=== PATIENT | female | born 1975 | race Caucasian/White ===

== ENCOUNTER → 2017-08-04 | Outpatient (CLI) | payer BC ==
[2017-08-04 16:00] LABS: BASO % 0.2 %; BASO ABS # 0.03 K/uL (0-0.2); COMPLETE YES; EOS % 1.1 %; HEMATOCRIT 37.7 % (37-47); IG% 0.2 %; LYMPH % 19.4 %; LYMPH ABS # 2.63 K/uL (1.2-3.4); MEAN CELL VOLUME 81.6 fL (80-100); MEAN CORPUSCULAR HEMOGLOBIN 25.5 pg (25-34); MEAN CORPUSCULAR HGB CONC 31.3 g/dl (32-36); MEAN PLATELET VOLUME 11.1 fL (7.4-10.4); MONO % 6.9 %; NEUT % 72.2 %; PLATELET COUNT 300 K/uL (130-400); RED BLOOD COUNT 4.62 M/uL (4.2-5.4); WHITE BLOOD COUNT 13.53 K/uL (4.8-10.8)
[2017-08-04 16:08] LABS: ALT/SGPT 23 U/L (12-78); AST/SGOT 10 U/L (15-37); BLOOD UREA NITROGEN 8 mg/dl (7-18); BUN/CREATININE RATIO 11.4 (10-20); CALCIUM 8.5 mg/dl (8.5-10.1); CARBON DIOXIDE 27 mmol/L (21-32); CHLORIDE 105 mmol/L (98-107); GLUCOSE 105 mg/dl (70-99); POTASSIUM 3.7 mmol/L (3.5-5.1); SODIUM 138 mmol/L (136-145)
[2017-08-04 16:21] LABS: ALB/GLOB RATIO 0.9 (0.9-2); ALKALINE PHOSPHATASE 68 U/L (45-117)
== END | disposition home or self-care (01) ==
LOC: C.LABSPEC 15:35
PROVIDERS: ATTEND Internal Medicine
DX: J06.9 Acute upper respiratory infection, unspecified (principal); R53.83 Other fatigue; K59.00 Constipation, unspecified

== ENCOUNTER 2024-04-17 10:20 | Inpatient (IN) ==
--- NOTE | 2024-04-17 10:50 | Emergency Department Note ---
Impression & Plan Abdominal pain, LLQ (left lower quadrant), Leukocytosis, Acute diverticulitis ED Provider Note HISTORY OF PRESENT ILLNESS: Patient is a 48-year-old female presenting with left lower quadrant abdominal pain. Patient reports that symptoms started yesterday. She was seen at [facility] and had laboratory workup performed and a CT scan ordered, but the CT could not be scheduled until the middle of April. Reports that she had worsening pain throughout the evening and into this morning. She had a fever of 101.8 this morning. She did not take any antipyretics prior to arrival in the emergency department. Denies any dysuria or hematuria. She reports a abdominal surgical history significant for cholecystectomy. She locates the pain to the periumbilical region with radiation to the left lower quadrant. Denies any chest pain or shortness of breath. She was taking Tylenol and Motrin yesterday for pain control, with little relief in her symptoms. 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 She reports that this was removed with [facility]. ROS: as above PHYSICAL EXAM: Constitutional: Patient appears in no acute distress. HENT: Head: Normocephalic and atraumatic. Eyes: EOMI, PERRL Mouth/Throat: Mucous membranes moist. Neck: Trachea midline. Neck supple. Cardiovascular: RRR, No murmurs, rubs or gallops. Intact distal pulses. Pulmonary/Chest: No respiratory distress. Breath sounds clear and equal bilaterally. No wheezes or rales. Abdominal: Abdomen soft, no rebound or guarding. LLQ TTP Musculoskeletal: No edema, tenderness or deformity noted. Skin: Warm and dry. No rash, erythema, pallor or cyanosis Psychiatric: Appropriate mood and affect for situation. Neurological: Alert and keenly responsive. CN II-XII grossly intact, moving all extremities equally and fully. MDM: - Vitals signs showed tachycardia. - History obtained via patient. History as above. - Chronic conditions affecting care: Carcinoid tumor - Differential diagnoses include, but are not limited to: Aortic aneurysm; diverticulitis; ischemic colitis; ovarian cyst; ureteral calculi; UTI - Order placed for continuous cardiac monitoring. At this time, monitor showed rate of 77 bpm with normal sinus rhythm, per my interpretation. - External medical records reviewed. Gastroenterology office visit note dated 04/16/2024 was reviewed. Patient was seen in the clinic for left lower quadrant abdominal pain. CBC, CMP, UA and CT abdomen/pelvis were ordered. - EKG interpreted by myself showed normal sinus rhythm. Rate 84 bpm. QT 364. No acute ischemic changes. - Laboratory workup interpreted by myself showed leukocytosis (WBC 16.17) with left shift; normal PT/INR; stable electrolytes; normal liver function; normal lipase; normal troponin - Patient given 1L NS. Initially ordered 4 mg IV morphine, but patient was requesting something less strong. She was given 1 g of IV Tylenol and 4 mg IV zofran. On reassessment, the patient is feeling improved. - CT abdomen/pelvis with IV contrast showed acute diverticulitis with associated microperforation. No abscess noted. - Patient given IV zosyn. - Discussed case with SCOOBY Shaver on with Dr. Brewer for surgery. Recommended continue IV fluids and antibiotics, n.p.o. and conservative treatment. She will come and see the patient. - Discussion was had with casework supervisor about patient's case and need for admission - Hospitalist, Dr. Alvarez, consulted for admission - [facility] ASSESSMENT AND PLAN: Diagnosis: Acute diverticulitis with microperforation; LLQ abdominal pain; leukocytosis Plan: Admit Past Med/Surg History Problem List (Updated 04/17/24 @ 14:33 by Jenni Avila MD) Acute diverticulitis (Acute) Leukocytosis (Acute) Abdominal pain, LLQ (left lower quadrant) (Acute) Obesity Encounter for pre-operative examination Left flank pain Left renal stone Microscopic hematuria Medical History (Updated 04/17/24 @ 14:33 by Jenni Avila MD) History of COVID-05 Sep 2020 > [facility] > fatigue, fever, pain, loss of taste and smell GERD (gastroesophageal reflux disease) Depression Constipation Kidney stones has at present Anemia following with PCP Degenerative disc disease Surgical History History of colonoscopy History of cholecystectomy Lap Family History Uncle Family hx of colon cancer Uncle Family hx of colon cancer Father Heart disease Hypertension Mother Nephrolithiasis Other No family history of adverse response to anesthesia Social History Smoking Status: Never smoker Second Hand Exposure: No; Do You Dip or Chew Tobacco: No; Hx Alcohol Use: No Hx Substance Use: No Preferred Language: Jordanian Communication Ability: Effective Policy Officer Required: No Beliefs That Will Affect Care: None marital status: Current Living Situation: Family Feels Safe at Home: Yes Assistive Devices: None Allergies Allergies Allergy/AdvReac Type Severity Reaction Status Date / Time No Known Allergies Allergy Verified 07/23/21 07:01 Home Meds Home Medications Medication Instructions Recorded Confirmed linaclotide 145 mcg capsule 145 mcg PO QAM 09/13/19 07/23/21 (Linzess) ferrous sulfate 325 mg (65 mg 325 mg PO TID 05/26/20 07/23/21 iron) tablet omeprazole 20 mg capsule,delayed 20 mg PO QAM 05/26/20 07/23/21 release escitalopram oxalate 20 mg tablet 20 mg PO QAM 07/19/21 07/23/21 (Lexapro) valacyclovir 1 gram tablet 1,000 mg PO QAM 07/19/21 07/23/21 (Valtrex) Results & Data (ED) Vital Signs Vital Signs - 24 hr 04/17/24 10:21 04/17/24 12:14 Temperature 36.7 C Temperature Source Temporal Artery Scan Pulse Rate 97 H Pulse Rate [Radial] 77 Pulse Rhythm [Radial] Regular Respiratory Rate 18 18 Respiratory Effort / Characteristics Non-Labored Spontaneous Non-Labored Respiratory Depth Normal Normal Respiratory Pattern Regular Blood Pressure 125/90 Blood Pressure [Right Arm] 114/73 Blood Pressure Mean 101 Blood Pressure Mean [Right Arm] 86 Blood Pressure Position Sitting Pulse Oximetry 98 99 Oxygen Delivery Method Room Air Room Air Sepsis Recent Fever Within 48 Hours No Sepsis New/Unexplained Change in Mental Status No Sepsis Action Taken by Nursing No Action Required Laboratory Data 04/17/24 11:00 04/17/24 11:00 Lab Results 04/17/24 Range/Units 11:00 WBC 16.17 H (4.8-10.8) K/ul RBC 4.72 (4.20-5.40) M/uL Hgb 13.6 (12.0-16.0) g/dl Hct 40.4 (37.0-47.0) % MCV 85.6 (80.0-100.0) fL MCH 28.8 (25.0-34.0) pg MCHC 33.7 (32.0-36.0) g/dL RDW Std Deviation 41.0 (36.4-46.3) fL RDW Coeff of Jennifer 13.1 (11.5-14.5) % Plt Count 246 (130-400) K/uL MPV 10.6 (9.4-12.4) fL Immature Gran % (Auto) 0.4 % Neut % (Auto) 76.8 % Lymph % (Auto) 15.0 % Cottle % (Auto) 6.4 % Eos % (Auto) 1.1 % Baso % (Auto) 0.3 % Neut # (Auto) 12.41 H (1.40-6.50) K/uL Lymph # (Auto) 2.43 (1.20-3.40) K/uL Cottle # (Auto) 1.04 H (0.11-0.59) K/uL Eos # (Auto) 0.18 (0.00-0.50) K/uL Baso # (Auto) 0.05 (0.00-0.20) K/uL Immature Gran # (Auto) 0.06 (0.01-0.20) K/uL PT 11.3 (9.0-12.0) Seconds INR 1.0 (0.9-1.1) Sodium 137 (136-145) mmol/L Potassium 3.6 (3.5-5.1) mmol/L Chloride 104 (98-107) mmol/L Carbon Dioxide 25 (21-32) mmol/L Anion Gap 8 (3-11) BUN 9 (6-23) mg/dl Creatinine 0.57 L (0.6-1.2) mg/dl Est Cr Clr Drug Dosing 138.5 ml/min Est GFR ( Amer) 125.3 ml/min Est GFR (Non-Af Amer) 108.1 ml/min BUN/Creatinine Ratio 15.8 (10-20) Glucose 87 (70-99(Fasting)) mg/dl Lactate 0.8 (0.4-2.0) mmol/L Calcium 8.9 (8.6-10.3) mg/dl Total Bilirubin 0.6 (0.2-1.0) mg/dl AST 12 L (13-39) U/L ALT 13 (7-52) U/L Alkaline Phosphatase 61 (34-104) U/L Troponin I High Sens 3.3 (0-14) pg/ml Total Protein 7.2 (6.0-8.3) gm/dl Albumin 4.0 (3.4-5.0) gm/dl Globulin 3.2 (2.5-4.0) gm/dl Albumin/Globulin Ratio 1.3 (0.9-2) Lipase 16 (11-82) U/L Administered Medications Discontinued Medications Sodium Chloride (Nss) 1,000 mls @ 999 mls/hr IV .Q1H1M ONE Stop: 04/17/24 11:46 Last Infusion: 04/17/24 12:14 Dose: Infused Documented By: Admin: 04/17/24 11:19 Dose: 999 mls/hr Documented By: MARCELINA Acetaminophen (Ofirmev) 1,000 mg in 100 mls @ 400 mls/hr IV NOW STA Stop: 04/17/24 11:26 Last Infusion: 04/17/24 12:13 Dose: Infused Documented By: Admin: 04/17/24 11:19 Dose: 400 mls/hr Documented By: MARCELINA Piperacillin Sod/Tazobactam Sod (Zosyn) 4.5 gm in 100 mls @ 200 mls/hr IV NOW ONE Stop: 04/17/24 14:20 Last Admin: 04/17/24 14:01 Dose: 200 mls/hr Documented By: MARGAUX Ioversol (Optiray 320 100ml) 94 ml IV ONCE ONE Stop: 04/17/24 11:58 Last Admin: 04/17/24 11:58 Dose: 94 ml Documented By: YURI Ondansetron HCl (Ondansetron Inj 2 Mg/Ml 2 Ml Vial) 4 mg IV NOW STA Stop: 04/17/24 10:47 Last Admin: 04/17/24 11:19 Dose: 4 mg Documented By: MARCELINA Imaging Data Radiologist's Impression: Abdomen/Pelvis CT 04/17/24 10:[address] WITH IV CONTRAST CT DOSE: 1487.8 mGy.cm HISTORY: LLQ abdominal pain TECHNIQUE: Multiaxial CT images of the abdomen and pelvis were performed following the use of intravenous contrast. A dose lowering technique was utilized adhering to the principles of ALARA. COMPARISON STUDY: Outside hospital abdomen and pelvis CT 02/26/2020. FINDINGS: Mild dependent changes seen within the lung bases. No acute fractures. Mild hepatic steatosis. Prior cholecystectomy. The main portal vein is patent. The pancreas, spleen, and adrenal glands are unremarkable. There are few subcentimeter bilateral renal hypodense lesions. These are totally too small to characterize but statistically represent cysts. No hydronephrosis. No retroperitoneal lymphadenopathy. Normal caliber abdominal aorta. No pelvic free fluid. The bladder is unremarkable. The uterus and bilateral adnexa are within normal limits. No dilated loops of bowel to suggest an obstruction. Fluid-filled colon suggestive of a diarrheal illness. Normal appendix. Acute diverticulitis within the ascending colon with surrounding fat stranding and focal thickening of the bowel wall. There is associated small foci of extraluminal gas consistent with microperforation. No abscess at this time. IMPRESSION: 1. Acute diverticulitis within the ascending colon with associated microperforation. No abscess at this time. 2. Fluid-filled colon consistent with a diarrheal illness. 3. No evidence for a bowel obstruction. 4. Mild hepatic steatosis ACT 112: Negative or not required by law. Electronically signed by: Meek Trevino M.D. 04/17/2024 1:26 PM Discharge Plan Visit Data Chief Complaint: Abdominal Pain Stated Complaint: ABD PAIN, FEVER ED Provider: Jenni Avila Discharge Problem: Abdominal pain, LLQ (left lower quadrant), Leukocytosis, Acute diverticulitis Forms Stand Alone Forms: [facility] [employer] Prescriptions Prescriptions: No Action Linzess 145 mcg Capsule 145 mcg PO QAM ferrous sulfate 325 mg (65 mg iron) Tablet 325 mg PO TID omeprazole 20 mg Capsule,Delayed Release(Dr/Ec) 20 mg PO QAM valacyclovir [Valtrex] 1 gram Tablet 1,000 mg PO QAM escitalopram oxalate [Lexapro] 20 mg Tablet 20 mg PO QAM Referrals Referrals: Eduardo Adamson MD [Staff Physician] -
[2024-04-17 11:19] LABS: Basophils # (auto) 0.05 K/uL (0.00-0.20); Basophils % (auto) 0.3 %; Eosinophils # (auto) 0.18 K/uL (0.00-0.50); Eosinophils % (auto) 1.1 %; Hematocrit (blood only) 40.4 % (37.0-47.0); Hemoglobin 13.6 g/dl (12.0-16.0); Immature Granulocytes # (auto) 0.06 K/uL (0.01-0.20); Immature Granulocytes % (auto) 0.4 %; Lymphocytes # (auto) 2.43 K/uL (1.20-3.40); Mean Corpuscular Hemoglobin 28.8 pg (25.0-34.0); Mean Corpuscular Hgb Conc 33.7 g/dL (32.0-36.0); Mean Corpuscular Volume 85.6 fL (80.0-100.0); Mean Platelet Volume 10.6 fL (9.4-12.4); Monocytes # (auto) 1.04 K/uL (0.11-0.59); Monocytes % (auto) 6.4 %; Neutrophils # (auto) 12.41 K/uL (1.40-6.50); Neutrophils % (auto) 76.8 %; Platelet Count 246 K/uL (130-400); RDW Coefficient of Variation 13.1 % (11.5-14.5); Red Blood Count 4.72 M/uL (4.20-5.40); White Blood Count 16.17 K/ul (4.8-10.8)
[2024-04-17] MEDS: SODIUM CHLORIDE 0.9% 1,000 ML IV ONE (11:19)
[2024-04-17] MEDS: ACETAMINOPHEN 1,000 MG/100 ML VIAL IV STA (11:19)
[2024-04-17] MEDS: ONDANSETRON INJ 2 MG/ML 2 ML VIAL IV STA (11:19)
[2024-04-17 11:37] LABS: Albumin Globulin Ratio 1.3 (0.9-2); BUN Creatinine Ratio 15.8 (10-20); Bilirubin,Total 0.6 mg/dl (0.2-1.0); Calcium 8.9 mg/dl (8.6-10.3); Creatinine Clr Calc Pharmacy 138.5 ml/min; Est GFR (African American) 125.3 ml/min; Est GFR (Non-African American) 108.1 ml/min; Globulin 3.2 gm/dl (2.5-4.0); Potassium 3.6 mmol/L (3.5-5.1); Total Protein 7.2 gm/dl (6.0-8.3)
[2024-04-17 11:42] LABS: Troponin I High Sensitivity 3.3 pg/ml (0-14)
[2024-04-17 11:43] LABS: Prothrombin Time 11.3 Seconds (9.0-12.0)
[2024-04-17] MEDS: OPTIRAY 320 100ml IV ONE (11:58)
--- NOTE | 2024-04-17 13:28 | CT Scan Report ---
ABDOMEN AND PELVIS CT WITH IV CONTRAST CT DOSE: 1487.8 mGy.cm HISTORY: LLQ abdominal pain TECHNIQUE: Multiaxial CT images of the abdomen and pelvis were performed following the use of intrave nous contrast. A dose lowering technique was utilized adhering to the principles of ALARA. COMPARISON STUDY: Outside hospital abdomen and pelvis CT 02/26/2020. FINDINGS: Mild dependent changes seen within the lung bases. No acute fractures. Mild hepatic steatos is. Prior cholecystectomy. The main portal vein is patent. The pancreas, spleen, and adrenal glands a re unremarkable. There are few subcentimeter bilateral renal hypodense lesions. These are totally too small to characterize but statistically represent cysts. No hydronephrosis. No retroperitoneal lymph adenopathy. Normal caliber abdominal aorta. No pelvic free fluid. The bladder is unremarkable. The ut erus and bilateral adnexa are within normal limits. No dilated loops of bowel to suggest an obstructi on. Fluid-filled colon suggestive of a diarrheal illness. Normal appendix. Acute diverticulitis withi n the ascending colon with surrounding fat stranding and focal thickening of the bowel wall. There is associated small foci of extraluminal gas consistent with microperforation. No abscess at this time. IMPRESSION: 1. Acute diverticulitis within the ascending colon with associated microperforation. No abscess at th is time. 2. Fluid-filled colon consistent with a diarrheal illness. 3. No evidence for a bowel obstruction. 4. Mild hepatic steatosis ACT 112: Negative or not required by law. Electronically signed by: Meek Trevino M.D. 04/17/2024 1:26 PM
[2024-04-17] MEDS: PIPERACILLIN/TAZOBACTAM 4.5 GM/100 ML BAG IV ONE (14:01)
--- NOTE | 2024-04-17 14:36 | Surgery Consultation ---
Date of Consultation April 17, 2024 Assessment & Plan (1) Acute diverticulitis: Her CT images and results were personally viewed and interpreted by myself She has some small extraluminal gas, no abscess and a fair amount of inflammation of the ascending colon She is non-toxic without peritoneal signs She is being admitted to medicine, will plan on NPO, IV ABX Follow her WBC and abdominal exam Surgery will follow History of Present Illness Reason for Consultation: Diverticulitis History of Present Illness This is a 48 yo female who is here with abdominal pain. She states she has sh justin centralized abdominal pain for the last 4 days with radiation to her right abdomen. No aggravating or relieving factors. She denies any constipation or diarrhea. She had some nausea without emesis. She has a history of cholecystectomy. No other abdominal surgeries. She has a history of rectal carcinoid and is due for a colonoscopy in Sep 2024. Her last was in 2018 and did show pandiverticulosis at that time. She states she did have a fever Monday, but none since. Allergies Allergy/AdvReac Type Severity Reaction Status Date / Time No Known Allergies Allergy Verified 07/23/21 07:01 Home Medications Medication Instructions Recorded Confirmed Type linaclotide 145 mcg capsule 145 mcg PO QAM 09/13/19 07/23/21 History (Linzess) ferrous sulfate 325 mg (65 mg 325 mg PO TID 05/26/20 07/23/21 History iron) tablet omeprazole 20 mg capsule,delayed 20 mg PO QAM 05/26/20 07/23/21 History release escitalopram oxalate 20 mg tablet 20 mg PO QAM 07/19/21 07/23/21 History (Lexapro) valacyclovir 1 gram tablet 1,000 mg PO QAM 07/19/21 07/23/21 History (Valtrex) Patient History Medical History History of COVID-05 Sep 2020 > [facility] > fatigue, fever, pain, loss of taste and smell GERD (gastroesophageal reflux disease) Depression Constipation Kidney stones has at present Anemia following with PCP Degenerative disc disease Surgical History History of colonoscopy History of cholecystectomy Lap Family History Uncle Family hx of colon cancer Uncle Family hx of colon cancer Father Heart disease Hypertension Mother Nephrolithiasis Other No family history of adverse response to anesthesia Social History Smoking Status: Never smoker Second Hand Exposure: No; Do You Dip or Chew Tobacco: No; Hx Alcohol Use: No Hx Substance Use: No Preferred Language: [place]inean Communication Ability: Effective Nib Adjuster Required: No Beliefs That Will Affect Care: None marital status: Current Living Situation: Family Feels Safe at Home: Yes Assistive Devices: None Review of Systems Constitutional: + fever; no chills Eyes: no blind spots and no discharge Ear, Nose, Mouth, Throat: no ear pain, no tinnitus and no hearing loss Respiratory: no cough and no dyspnea Cardiovascular: no chest pain and no dyspnea on exertion Gastrointestinal: + abdominal pain and + nausea; no vomiti ng, no constipation and no diarrhea/loose stools Genitourinary: no dysuria and no urinary urgency Musculoskeletal: no back pain and no neck pain Integumentary: no acne, no non-healing lesions, no changing lesions and no skin ulcer Neurologic: no gait abnormality and no headache(s) Psychiatric: no behavioral changes and no depression Hematologic / Lymphatic: no easy bleeding and no easy bruising Physical Exam Constitutional: WD/WN, vitals as above Eyes: PERRL, conjunctivae normal, anicteric sclerae ENMT: external ear and nose normal, oropharynx normal Neck: trachea midline, no thyromegaly Respiratory: normal respiratory effort, lungs clear to auscultation Cardiovascular: RRR, no murmur, no edema Gastrointestinal (Abdomen): Inspection/Auscultation: abdomen normal to inspection; abdomen not distended Percussion/Palpation: + abdomen tender (right abdomen) and abdomen soft; no guarding and no hernia Musculoskeletal: no cyanosis or clubbing, extremities motor strength 5/5 Skin: no rashes, warm and dry Neurologic: PERRL, EOMI, accommodation nl, no face palsy, no dysarthria Psychiatric: A+Ox3, euthymic affect Results & Data Vital Signs (Past 12 Hours) Vital Signs Temp Pulse Pulse Resp BP BP Pulse Ox 04/17/24 12:14 77 18 114/73 99 04/17/24 10:21 36.7 C 97 H 18 125/90 98 O2 Del Method 04/17/24 12:14 Room Air 04/17/24 10:21 Room Air PG Care Time/CCT Total # of Minutes Spent Total Time Spent with Patient: Total time spent is greater than 50% in coordination of care (as documented) at patient's floor/unit and/or counseling patient: Coding Level of Care Code 18042 OFFICE CONSULT LVL M Diagnoses Acute diverticulitis K57.92
--- NOTE | 2024-04-17 15:08 | History & Physical Report ---
Date of Service April 17, 2024 Assessment & Plan (1) Acute diverticulitis: Plan Pt is a 48yoF with PMhx significant for carcinoid tumor s/p resection in 2018 presenting with abdominal pain and fever in the setting of acute diverticulitis with microperforation. Sepsis, POA Acute diverticulitis Microperforation of Colon Pt with fevers at home, leukocytosis of 16K on admission, infectious source acute diverticulitis Lactate wnl CT abd/pelvis noting "Acute diverticulitis within the ascending colon with associated microperforation. No abscess at this time." General surgery consulted, appreciate recs -recommending conservative management at this time -IV abx, fluids, NPO status UA ordered and pending Continue with IV Zosyn Continue with IV fluids Pt made NPO IV antiemetics and pain control prn Continue to monitor Chronic Diarrhea and Constipation Pt notes a Hx of chronic constipation for which she takes Linzess Now has been having diarrhea for some time CT abd/pelvis noting "Fluid-filled colon consistent with a diarrheal illness." Holding home linzess, pt notes she takes it prn Stool Cx, c diff ordered and pending Continue to monitor Hx of carcinoid tumor Found on colonoscopy s/p resection Follows with GI Due for repeat surveillance in Sep 2024 GERD Continue home ppi Diet: NPO at this time DVT prophylaxis: Heparin SQ Dispo: admit to med/surg History of Present Illness Chief Complaint: fever and abdominal pain Primary Care Provider: Tahira Ness MD Pt is a 48yoF with PMhx significant for carcinoid tumor s/p resection in 2018 presenting with abdominal pain and fever in the setting of acute diverticulitis with microperforation. She states that she has been having fevers as high as 102 at home with severe a bdominal pain and presented for evaluation yesterday at her GI's office. States that she was ordered a CT scan for further evaluation but was scheduled to have it done on May 02. But the pain persisted with the fevers and so she contacted gastroenterology once more and was advised to present to the ED for further evaluation. Has been having nausea without emesis and diarrhea. Notes a Hx of carcinoid tumor that she states was found on colonoscopy to work up her chronic constipation. States it was resected and she had a subsequent flex sig/lower EUS for surveillance which was normal. States she is due to have a repeat colonoscopy in Sep 2024 for continued surveillance. Notes that her abdominal pain is currently 2/10 since being in the ED. Allergies Allergy/AdvReac Type Severity Reaction Status Date / Time No Known Allergies Allergy Verified 07/23/21 07:01 Home Medications Medication Instructions Recorded Confirmed Type linaclotide 145 mcg capsule 145 mcg PO QAM 09/13/19 04/17/24 History (Linzess) omeprazole 20 mg capsule,delayed 20 mg PO QAM 05/26/20 04/17/24 History release valacyclovir 1 gram tablet 1,000 mg PO QAM PRN outbreaks 07/19/21 04/17/24 History (Valtrex) Past Med/Surg History Problem List Acute diverticulitis (Acute) Leukocytosis (Acute) Abdominal pain, LLQ (left lower quadrant) (Acute) Obesity Encounter for pre-operative examination Left flank pain Left renal stone Microscopic hematuria Medical History History of COVID-05 Sep 2020 > [facility] > fatigue, fever, pain, loss of taste and smell GERD (gastroesophageal reflux disease) Depression Constipation Kidney stones has at present Anemia following with PCP Degenerative disc disease Surgical History History of colonoscopy History of cholecystectomy Lap Family History Uncle Family hx of colon cancer Uncle Family hx of colon cancer Father Heart disease Hypertension Mother Nephrolithiasis Other No family history of adverse response to anesthesia Social History Smoking Status: Never smoker Second Hand Exposure: No; Do You Dip or Chew Tobacco: No; Hx Alcohol Use: No Hx Substance Use: No Preferred Language: Mongolian Communication Ability: Effective Road Marker Required: No Beliefs That Will Affect Care: None marital status: Current Living Situation: Family Feels Safe at Home: Yes Assistive Devices: None Review of Systems Review of Systems: All systems reviewed & are unremarkable except as noted in Subjective Physical Exam Physical Exam: General: Alert, orientedx3. No acute distress at the time of exam Skin: No noted rashes or bruises Psych: Appropriate mood and affect Neuro: No gross deficits HEENT: NC/AT CV: RRR Resp: Breath sounds clear bilaterally, no increased effort of breathing. Abdomen: Soft, mildly tender diffusely, nondistended. No guarding. Extremities: No edema in lower extremities bilaterally. Results & Data Results & Data Vital Signs (Past 12 Hours) Vital Signs Temp Pulse Pulse Resp BP BP Pulse Ox 04/17/24 12:14 77 18 114/73 99 04/17/24 10:21 36.7 C 97 H 18 125/90 98 O2 Del Method 04/17/24 12:14 Room Air 04/17/24 10:21 Room Air Diagnostic Findings Abdomen/Pelvis CT 04/17/24 10:[address] WITH IV CONTRAST CT DOSE: 1487.8 mGy.cm HISTORY: LLQ abdominal pain TECHNIQUE: Multiaxial CT images of the abdomen and pelvis were performed following the use of intravenous contrast. A dose lowering technique was utilized adhering to the principles of ALARA. COMPARISON STUDY: Outside hospital abdomen and pelvis CT 02/26/2020. FINDINGS: Mild dependent changes seen within the lung bases. No acute fractures. Mild hepatic steatosis. Prior cholecystectomy. The main portal vein is patent. The pancreas, spleen, and adrenal glands are unremarkable. There are few subcentimeter bilateral renal hypodense lesions. These are totally too small to characterize but statistically represent cysts. No hydronephrosis. No retroperitoneal lymphadenopathy. Normal caliber abdominal aorta. No pelvic free fluid. The bladder is unremarkable. The uterus and bilateral adnexa are within normal limits. No dilated loops of bowel to suggest an obstruction. Fluid-filled colon suggestive of a diarrheal illness. Normal appendix. Acute diverticulitis within the ascending colon with surrounding fat stranding and focal thickening of the bowel wall. There is associated small foci of extraluminal gas consistent with microperforation. No abscess at this time. IMPRESSION: 1. Acute diverticulitis within the ascending colon with associated microperforation. No abscess at this time. 2. Fluid-filled colon consistent with a diarrheal illness. 3. No evidence for a bowel obstruction. 4. Mild hepatic steatosis ACT 112: Negative or not required by law. Electronically signed by: Meek Trevino M.D. 04/17/2024 1:26 PM
[2024-04-17] MEDS ORDERED: ONDANSETRON INJ 2 MG/ML 2 ML VIAL IV PRN (16:03)
[2024-04-17] MEDS ORDERED: HYDROmorphone INJ 0.5 MG/0.5 ML SYR IV PRN (16:03)
[2024-04-17] MEDS: MoRPHine SULFATE 4 MG/ML 1 ML CARP\\VIAL IV STA (16:16)
[2024-04-17] MEDS: SODIUM CHLORIDE 0.9% 1,000 ML IV SCH (16:25)
[2024-04-17] MEDS: PIPERACILLIN/TAZOBACTAM 4.5 GM in DEXTROSE 5% MINI-B 100 ML IV SCH (18:20)
[2024-04-17 20:12] LABS: Appearance Urine Clear (Clear); Bacteria Urine Automated 1+ (None Seen); Bilirubin Urine Negative (Negative); Blood Urine Negative (Negative); Cast Urine Automated 0-2 /lpf (0-2); Color Urine Yellow; Epithelial Cell Urine Auto 0-2 /hpf (0-2); Glucose Urine UA Negative (Negative); Ketones Urine 1+ (Negative); Leukocyte Esterase Urine 2+ (Negative); Nitrite Urine Negative (Negative); Protein Urine Trace (Negative); RBC Urine Automated 0-2 /hpf (0-2); Specific Gravity Urine > 1.045 (1.000-1.030); Urobilinogen Urine Negative (Negative); WBC Urine Automated 21-50 /hpf (0-5); pH Urine 5.5 (4.5-7.5)
[2024-04-17] MEDS: HEPARIN SOD 5,000 UNIT/0.5 ML VIAL SQ SCH (20:17)
[2024-04-18 04:38] LABS: Adenovirus F 40/41 PCR Not Detected (NotDetected); Astrovirus PCR Not Detected (NotDetected); Campylobacter PCR Not Detected (NotDetected); Cryptosporidium PCR Not Detected (NotDetected); Cyclospora cayetanensis PCR Not Detected (NotDetected); Entamoeba histolytica PCR Not Detected (NotDetected); Enteroaggregative E.coli(EAEC) Not Detected (NotDetected); Enteropathogenic E.coli (EPEC) Not Detected (NotDetected); Enterotoxigenic E.coli (ETEC) Not Detected (NotDetected); Giardia lamblia PCR Not Detected (NotDetected); Norovirus GI/GII PCR Not Detected (NotDetected); Plesiomonas shigelloides PCR Not Detected (NotDetected); Rotavirus A PCR Not Detected (NotDetected); Salmonella PCR Not Detected (NotDetected); Sapovirus PCR Not Detected (NotDetected); Shiga-like Toxin E.coli (STEC) Not Detected (NotDetected); Shigella/Enteroinvasive E.coli Not Detected (NotDetected); Vibrio cholerae PCR Not Detected (NotDetected); Vibrio species PCR Not Detected (NotDetected); Yersinia enterocolitica PCR Not Detected (NotDetected)
[2024-04-18 07:08] LABS: Basophils # (auto) 0.04 K/uL (0.00-0.20); Basophils % (auto) 0.4 %; Eosinophils # (auto) 0.29 K/uL (0.00-0.50); Eosinophils % (auto) 2.9 %; Hematocrit (blood only) 35.9 % (37.0-47.0); Hemoglobin 11.6 g/dl (12.0-16.0); Immature Granulocytes # (auto) 0.03 K/uL (0.01-0.20); Immature Granulocytes % (auto) 0.3 %; Lymphocytes # (auto) 2.11 K/uL (1.20-3.40); Lymphocytes % (auto) 21.1 %; Mean Corpuscular Hemoglobin 28.6 pg (25.0-34.0); Mean Corpuscular Hgb Conc 32.3 g/dL (32.0-36.0); Mean Corpuscular Volume 88.4 fL (80.0-100.0); Mean Platelet Volume 10.5 fL (9.4-12.4); Monocytes # (auto) 0.61 K/uL (0.11-0.59); Monocytes % (auto) 6.1 %; Neutrophils # (auto) 6.94 K/uL (1.40-6.50); Neutrophils % (auto) 69.2 %; Platelet Count 220 K/uL (130-400); RDW Coefficient of Variation 12.9 % (11.5-14.5); Red Blood Count 4.06 M/uL (4.20-5.40); White Blood Count 10.02 K/ul (4.8-10.8)
[2024-04-18] MEDS: ACETAMINOPHEN 1,000 MG/100 ML VIAL IV PRN (07:43)
[2024-04-18] MEDS: PANTOprazole 40 MG TAB PO SCH (07:47)
[2024-04-18 07:54] LABS: Albumin Globulin Ratio 1.4 (0.9-2); Albumin Level 3.3 gm/dl (3.4-5.0); BUN Creatinine Ratio 13.6 (10-20); Bilirubin,Total 0.6 mg/dl (0.2-1.0); Calcium 8.3 mg/dl (8.6-10.3); Creatinine Clr Calc Pharmacy 134.6 ml/min; Est GFR (African American) 123.9 ml/min; Est GFR (Non-African American) 106.9 ml/min; Globulin 2.4 gm/dl (2.5-4.0); Magnesium 1.8 mg/dl (1.7-2.4); Potassium 3.7 mmol/L (3.5-5.1); Total Protein 5.7 gm/dl (6.0-8.3)
--- NOTE | 2024-04-18 08:41 | Surgery Progress Note ---
Date of Service April 18, 2024 Assessment & Plan (1) Acute diverticulitis: Plan: She is feeling better, trial clears today WBC trending down Continue IV ABX today Will follow Admission and Anticipated Discharge Date Admission Date: April 17, 2024 Subjective Pt seen and examined. Feeling much better. Afebrile. No N/V. Review of Systems Constitutional: no fever and no chills Physical Exam Constitutional: WD/WN, vitals as above Gastrointestinal (Abdomen): Inspection/Auscultation: abdomen normal to inspection; abdomen not distended Percussion/Palpation: + abdomen tender (mild right sided) and abdomen soft; no guarding and no hernia Results & Data Vital Signs (Past 12 Hours) Vital Signs Temp Pulse Resp BP Pulse Ox O2 Del Method 04/18/24 07:08 36.4 C L 64 16 93/61 L 97 Room Air PG Care Time/CCT Total # of Minutes Spent Total Time Spent with Patient: Total time spent is greater than 50% in coordination of care (as documented) at patient's floor/unit and/or counseling patient: Coding Level of Care Code 05146 SUB INP/OBS CARE 25MIN Diagnoses Acute diverticulitis K57.92
--- NOTE | 2024-04-18 11:28 | Hospitalist Progress Note ---
Date of Service April 18, 2024 Assessment & Plan (1) Acute diverticulitis: Plan 48 year old woman with PMhx significant for carcinoid tumor s/p resection in 2019 presenting with abdominal pain and fever in the setting of acute diverticulitis with microperforation. Sepsis, POA Acute diverticulitis Microperforation of Colon Pt with fevers at home, leukocytosis of 16K on admission, infectious source- acute diverticulitis Lactate wnl CT abd/pelvis noted "Acute diverticulitis within the ascending colon with associated microperforation. No abscess at this time." Leukocytosis resolved Continue with IV Zosyn Continue with IV fluids General surgery eval noted. Conservative management Advanced to clears by surgery. Monitor tolerance Chronic Diarrhea and Constipation Pt notes a Hx of chronic constipation for which she takes Linzess Now has been having diarrhea for some time Continue holding home linzess, pt notes she takes it prn Stool Cx, c diff negative Continue to monitor Hx of carcinoid tumor Found on colonoscopy s/p resection Follows with GI Due for repeat surveillance in Sep 2024. Will need C scope earlier in some weeks after complete resolution of active illness GERD Continue home ppi DVT prophylaxis: Heparin SQ Dispo: admit to med/surg I spent a total of 50 minutes coordinating, documenting and providing care for this patient excluding time spent in performance of separately billed services Admission and Anticipated Discharge Date Admission Date: April 17, 2024 Subjective Patient seen and examined Reports feeling better Stated low abd pain is improving No nausea, vomiting Denied fever, chills Physical Exam Constitutional: + well hydrated; no acute distress Eyes: PERRL, conjunctivae normal, anicteric sclerae ENMT: external ear and nose normal, oropharynx normal Respiratory: normal respiratory effort, lungs clear to auscultation Cardiovascular: Rate/Rhythm: regular rate and regular rhythm Gastrointestinal (Abdomen): normal bowel sounds, soft, nontender, no hepatosplenomegaly Musculoskeletal: No pedal edema Neurologic: PERRL, EOMI, accommodation nl, no face palsy, no dysarthria Psychiatric: A+Ox3, euthymic affect Results & Data Results & Data Vital Signs (Past 12 Hours) Vital Signs Temp Pulse Resp BP Pulse Ox O2 Del Method 04/18/24 07:08 36.4 C L 64 16 93/61 L 97 Room Air Laboratory Results Abnormal lab results 04/17/24 04/18/24 Range/Units 19:50 06:35 RBC 4.06 L (4.20-5.40) M/uL Hgb 11.6 L (12.0-16.0) g/dl Hct 35.9 L (37.0-47.0) % Neut # (Auto) 6.94 H (1.40-6.50) K/uL [place] # (Auto) 0.61 H (0.11-0.59) K/uL Creatinine 0.59 L (0.6-1.2) mg/dl Calcium 8.3 L (8.6-10.3) mg/dl AST 10 L (13-39) U/L Total Protein 5.7 L D (6.0-8.3) gm/dl Albumin 3.3 L (3.4-5.0) gm/dl Globulin 2.4 L (2.5-4.0) gm/dl Ur Specific [place] > 1.045 H (1.000-1.030) Urine Protein Trace H (Negative) Urine Ketones 1+ H (Negative) Ur Leukocyte Esterase 2+ H (Negative) Urine WBC (Auto) 21-50 H (0-5) /hpf Urine Bacteria (Auto) 1+ H (None Seen)
[2024-04-18 21:01] VITALS: RESP 16
[2024-04-19 07:28] LABS: Hematocrit (blood only) 36.5 % (37.0-47.0); Mean Corpuscular Hemoglobin 28.8 pg (25.0-34.0); Mean Corpuscular Hgb Conc 32.9 g/dL (32.0-36.0); Mean Corpuscular Volume 87.5 fL (80.0-100.0); Mean Platelet Volume 10.4 fL (9.4-12.4); Platelet Count 242 K/uL (130-400); RDW Coefficient of Variation 12.7 % (11.5-14.5); RDW Standard Deviation 40.3 fL (36.4-46.3); Red Blood Count 4.17 M/uL (4.20-5.40); White Blood Count 7.77 K/ul (4.8-10.8)
[2024-04-19 07:42] LABS: BUN Creatinine Ratio 5.8 (10-20); Calcium 8.4 mg/dl (8.6-10.3); Creatinine Clr Calc Pharmacy 115.1 ml/min; Est GFR (African American) 117.6 ml/min; Est GFR (Non-African American) 101.5 ml/min; Magnesium 1.7 mg/dl (1.7-2.4); Phosphorus 3.5 mg/dl (2.5-4.9); Potassium 3.4 mmol/L (3.5-5.1)
[2024-04-19 07:50] VITALS: PULSE 61; TEMP 97.9; O2SAT 97
--- NOTE | 2024-04-19 09:14 | Surgery Progress Note ---
Date of Service April 19, 2024 Assessment & Plan (1) Acute diverticulitis: Plan: She has tolerated some clears and is hopeful for discharge today Her vitals are normal and has no leukocytosis Advance to low fiber diet for lunch and if she tolerates this she can be discharged home from a surgical standpoint 2 weeks of PO ABX upon discharge and continue low fiber diet Surgery will sign off at this time, please call with any questions or concerns Admission and Anticipated Discharge Date Admission Date: April 17, 2024 Subjective Pt seen and examined. Still with some abdominal pain. Much improved since admission. Afebrile. Had a BM. Review of Systems Constitutional: no fever and no chills Eyes: no blind spots and no corrective lenses Respiratory: no cough and no dyspnea Cardiovascular: no chest pain and no dyspnea on exertion Gastrointestinal: + abdominal pain; no nausea, no vomiting and no constipation Integumentary: no acne and no dry skin Physical Exam Constitutional: WD/WN, vitals as above ENMT: external ear and nose normal, oropharynx normal Gastrointestinal (Abdomen): Inspection/Auscultation: abdomen normal to inspection; abdomen not distended Percussion/Palpation: + abdomen tender (right sided) and abdomen soft; no guarding and no hernia Skin: no rashes, warm and dry Psychiatric: A+Ox3, euthymic affect Results & Data Vital Signs (Past 12 Hours) Vital Signs Temp Pulse Resp BP Pulse Ox O2 Del Method 04/19/24 07:48 36.6 C 61 16 121/83 97 Room Air PG Care Time/CCT Total # of Minutes Spent Total Time Spent with Patient: Total time spent is greater than 50% in coordination of care (as documented) at patient's floor/unit and/or counseling patient: Coding Level of Care Code 28482 SUB INP/OBS CARE 10/12MIN Diagnoses Acute diverticulitis K57.92
[2024-04-19] MEDS: POTASSIUM CHLORIDE CRTAB 20 MEQ TABCR PO STA (09:50)
--- NOTE | 2024-04-19 13:17 | Discharge Summary ---
Date of Service April 19, 2024 Admission HPI Per Admitting Provider Pt is a 48yoF with PMhx significant for carcinoid tumor s/p resection in 2018 presenting with abdominal pain and fever in the setting of acute diverticulitis with microperforation. She states that she has been having fevers as high as 102 at home with severe abdominal pain and presented for evaluation yesterday at her GI's office. States that she was ordered a CT scan for further evaluation but was scheduled to have it done on May 02. But the pain persisted with the fevers and so she contacted gastroenterology once more and was advised to present to the ED for further evaluation. Has been having nausea without emesis and diarrhea. Notes a Hx of carcinoid tumor that she states was found on colonoscopy to work up her chronic constipation. States it was resected and she had a subsequent flex sig/lower EUS for surveillance which was normal. States she is due to have a repeat colonoscopy in Sep 2024 for continued surveillance. Notes that her abdominal pain is currently 2/10 since being in the ED. Admission Exam Per Admitting Provider General: Alert, orientedx3. No acute distress at the time of exam Skin: No noted rashes or bruises Psych: Appropriate mood and affect Neuro: No gross deficits HEENT: NC/AT CV: RRR Resp: Breath sounds clear bilaterally, no increased effort of breathing. Abdomen: Soft, mildly tender diffusely, nondistended. No guarding. Extremities: No edema in lower extremities bilaterally. Principal Diagnosis Acute Diverticulitis Discharge Exam Constitutional + well hydrated; no acute distress Eyes PERRL, conjunctivae normal, anicteric sclerae ENMT external ear and nose normal, oropharynx normal Respiratory normal respiratory effort, lungs clear to auscultation Cardiovascular Rate/Rhythm: regular rate and regular rhythm Gastrointestinal (Abdomen) normal bowel sounds, soft, nontender, no hepatosplenomegaly Musculoskeletal No pedal edema Neurologic PERRL, EOMI, accommodation nl, no face palsy, no dysarthria Psychiatric A+Ox3, euthymic affect Discharge Data Allergies Allergy/AdvReac Type Severity Reaction Status Date / Time No Known Allergies Allergy Verified 07/23/21 07:01 Consultations 04/17/24 14:26 Consult General Surgery Routine ED Decision to Admit Stat Ordered Studies 04/17/24 10:47 CT Abd and Pelvis [CT abd pelvis IV con only] Stat Hospital Course (1) Acute diverticulitis: Plan 48 year old woman with PMhx significant for carcinoid tumor s/p resection in 2018 presenting with abdominal pain and fever in the setting of acute dive rticulitis with microperforation. Sepsis, POA Acute diverticulitis Microperforation of Colon Pt had fevers at home, leukocytosis of 16K on admission Lactate wnl CT abd/pelvis noted "Acute diverticulitis within the ascending colon with associated microperforation. No abscess at this time." Was managed with bowel rest, IVF and IV zosyn Gen surg evaluated and recommended conservative management Leukocytosis resolved Diet started and advanced with good tolerance Patient discharged on po Augmentin to complete treatment Patient to follow up with GI for colonoscopy in 6-8 weeks Chronic Diarrhea and Constipation Pt notes a Hx of chronic constipation for which she takes Linzess Stool Cx, c diff negative Follow up GI Hx of carcinoid tumor Found on colonoscopy s/p resectionI Due for repeat surveillance in Sep 2024. Will need C scope earlier in some weeks after complete resolution of active illness GERD Continue home ppi Total Time Total Time Spent Total Time Spent (In Minutes): 35 Total Time Includes: Examination of the Patient, Discharge Planning, Medication Reconciliation and Communication With Other Providers Discharge Plan Discharge Items Patient Disposition: Home - Self-Care Reason For Visit: DIVERTICULITIS Discharge Diagnosis: Acute Diverticulitis Activity: Resume your previous activity Non-emergency contact: Primary Care Provider and Bundle Helper Call non-emergency contact if: you have any medication questions and your symptoms worsen Follow-up/Referrals: Tahira Ness MD [Primary Care Provider] - Diet: Low Fiber Addtl Attending Provider Instructions: Mrs Merlos You were admitted to the hospital and managed for Acute diverticulitis with microperforation. You are being discharged home to complete oral antibiotics. Please ensure follow up with Gastroenterology for colonoscopy in 6-8 weeks. Please ensure follow up with your Primary Doctor. It was a pleasure taking care of you. Pending Studies at Discharge: No Stand-Alone Forms: My [employer], Smoking Cessation Medications and DC Order Prescriptions: New amoxicillin-pot clavulanate 875-125 mg tablet 1 tab PO BID 10 Days Qty: 20 0RF Continued Linzess 145 mcg Capsule 145 mcg PO QAM omeprazole 20 mg Capsule,Delayed Release(Dr/Ec) 20 mg PO QAM valacyclovir [Valtrex] 1 gram Tablet 1,000 mg PO QAM PRN (Reason: outbreaks) Discharge Orders: Discharge Order (Routine); Ordered 04/19/24 Ordered By: Abbey Marte Admission Data Admit Date/Time: 04/17/24 14:25 Attending Provider: Abbey Marte I. Admit Provider: Patience Alvarez Primary Care Provider: Tahira Ness Other Providers: Patience Alvarez; Sharad Brewer Other Interventions: Discharge Summary Assessment (RN) Last Done: 04/19/24 13:27
[2024-04-19 13:29] VITALS: BP 107/73
--- NOTE | 2024-04-19 18:20 | Electrocardiogram Report ---
Test Reason : Blood Pressure : / mmHG Vent. Rate : 084 BPM Atrial Rate : 084 BPM P-R Int : 148 ms QRS Dur : 084 ms QT Int : 364 ms P-R-T Axes : 033 043 022 degrees QTc Int : 430 ms Normal sinus rhythm Normal ECG No previous ECGs available Confirmed by John Diamond ([id number]) on 04/19/2024 6:20:10 PM Referred By: REFERRED SELF Confirmed By:John Diamond
== END 2024-04-19 13:46 | disposition home or self-care (01) | DRG 872 ==
LOC: ED 10:20 → 3N 14:25 → SUATTDRO 14:25 → 3N 16:04
DX: A41.9 Sepsis, unspecified organism; Z80.0 Family history of malignant neoplasm of digestive organs; Z86.16 Personal history of COVID-19; K59.09 Other constipation; Z86.012 Personal history of benign carcinoid tumor; K21.9 Gastro-esophageal reflux disease without esophagitis; K52.9 Noninfective gastroenteritis and colitis, unspecified; K57.20 Diverticulitis of large intestine with perforation and abscess without bleeding; Z90.49 Acquired absence of other specified parts of digestive tract; Z79.899 Other long term (current) drug therapy